=== PATIENT | male | born 1965 | race Caucasian/White ===

== ENCOUNTER 2017-06-02 16:26 | Emergency (ER) | payer BC ==
--- NOTE | 2017-06-02 16:58 | ERNOTE ---
Lower Extremity HPI - Narrative Date of Service: 06/02/17 - General Lower Extremities Pain: leg: right Time Seen by Provider: 06/02/17 16:50 Source: patient, RN notes reviewed, old records Exam Limitations: no limitations - Immun/Allergies/Home Medications Immunizations: IMMUNIZATION HX History of Influenza Vaccine No Hx Pneumococcal Vaccination No Allergies/Adverse Reactions: Allergies Allergy/AdvReac Type Severity Reaction Status Date / Time No Known Allergies Allergy Verified 06/02/17 16:39 Home Medications: HOME MEDICATIONS Phenytoin Sodium Extended [Dilantin] 200 mg PO BID 03/03/13 [Last Taken Unknown] Warfarin Sodium [Jantoven] 5 mg PO DAILY #30 tablet 06/02/17 [Last Taken Unknown ] - History of Present Illness Narrative: 51 year old male ambulatory to the ED for right leg pain and swelling. He had been off work for a month and returned today. He noticed the symptoms were getting worse while he was on his feet. He was seen by his PCP for a routine visit a week ago. He was found to have a shift in his WBC and a small purplish area near his right ankle. This was thought to possibly be vasculitis. He had a DVT several years ago and was treated with warfarin. Method of Injury: Reports: no apparent injury Prior Treament: Reports: recently seen, similar symptoms before Review of Systems - Review of Systems Constitutional: Present: decreased activity level. Absent: fever, chills, malaise EYE: Present: no symptoms reported ENT: Present: no symptoms reported Respiratory: Absent: shortness of breath, cough Cardiology: Present: edema. Absent: chest pain, palpitations, syncope, claudication Gastrointestinal/Abdominal: Absent: nausea, abdominal pain Genitourinary: Present: no symptoms reported Musculoskeletal: Present: muscle pain. Absent: joint pain, joint swelling Skin: Present: lesions, change in color. Absent: rash, lumps Neurological: Absent: headache, dizziness/light-headedness Endocrine: Present: no symptoms reported Hematologic/Lymphatic: Absent: easy bruising, easy bleeding Psych: Present: no symptoms reported - Patient's Past Medical History Patient History - Medical: Seizures Patient History - Cardiac/Respiratory: Aneurysm, Deep Vein Thrombosis Patient History - Cancer: No Hx of Cancer Patient History - Surgical Procedures: Other Patient History - Other: None - Social History Living Situations: home Psych History: No pertinent hx Smoking Status: Never smoker Alcohol Use: none Drug Use: none - Immunizations Hx Pneumococcal Vaccination: No History of Influenza Vaccine: No Physical Exam - Physical Exam General Appearance: Present: wd/wn, alert, no apparent distress Respiratory: Present: no respiratory distress, normal breath sounds, no accessory muscle use, lungs clear Cardiovascular/Chest: Present: regular rate, rhythm, no murmur Extremity Exam: Present: normal range of motion, extremity edema - Right leg from knee down, other - Right lower leg diffusely tender to palpation. Absent: joint swelling Neurological Exam: Present: alert, oriented, normal mood/affect, no motor/ sensory deficits Skin Exam: Present: warm/dry, other - Erythema to right lower leg ED Progress - Results and Orders Patient's Lab Results:: I have reviewed the patient's lab results. - Vital Signs Patient's Vital Signs:: I have reviewed the patient's vital signs. Vital Signs: Vital Signs 06/02/17 16:34 Temperature 37.7 C H Pulse Rate 105 H Respiratory 16 Rate Blood Pressure 154/105 O2 Sat by Pulse 99 Oximetry - CT/Ultrasound CT/Ultrasound Narrative: US Right lower extremity: Extensive deep venous thrombosis extending from the proximal aspect of the superficial femoral vein and into the visualized portions of the posterior tibial and peroneal veins. Findings discussed by telephone with Kimberley Hurtado at 7:26 pm on 06/02/2017. Electronically signed by Germaine Velasquez D.O.. - Progress/Reassessment Chief Complaint: Lower Extremity Pain/ Injury Progress:: Improved Plan - Plan Plan: Lovenox 100 mg given and Coumadin 10 mg, to start coumadin 5mg tomorrow and the next day, then recheck in coumadin clinic the following day Departure Clinical Impression: Deep venous thrombosis - Departure Disposition: Home Follow Up Needed Condition: Stable Instructions: Form - Excuse from Work, School, or Physical Activity, Deep Vein Thrombosis Additional Instructions: Start Coumadin tomorrow at 5 mg daily Recheck in Coumadin clinic on , we will contact you with appointment information tomorrow Referrals: Dilcia Soares FNP [Primary Care Provider] - Prescriptions: Warfarin Sodium [Jantoven] 5 mg PO DAILY #30 tablet
[2017-06-02 17:15] LABS: Hematocrit 44.2 % (42.0-52.0); Hemoglobin 15.7 gm/dL (13.5-18.0); Mean Cell Volume 89.7 fl (78-100); Mean Corpuscular Hemoglobin 31.8 pg (27-31); Mean Corpuscular Hgb Conc 35.5 g/dl (32-36); Mean Platelet Volume 9.2 fl (6.0-9.5); Neutrophil # 11.3 K/mm3 (1.3-6.0); Neutrophil % 81.4 % (42-75.0); Platelet Count 203 K/mm3 (150-450); Red Blood Count 4.93 M/mm3 (4.7-6.0); Red Cell Distribution Width 11.9 % (11.5-14.0); White Blood Count 13.9 K/mm3 (4.0-10.5)
[2017-06-02 17:28] LABS: Albumin * 3.8 gm/dl (3.4-5.0); Anion Gap 14.2 mmol/L (6.8-13.8); BUN/Creatinine Ratio 14.3 (9.0-21.6); Bilirubin, Total 0.4 mg/dL (0.0-1.1); Ca. Corrected For Albumin 8.9 mg/dL (8.4-10.2); Calcium * 9.1 mg/dL (7.9-10.9); Carbon Dioxide 27.9 mmol/L (24-32.6); Potassium 4.1 mmol/L (3.4-4.6); Total Protein 7.6 gm/dL (6.2-8.2)
[2017-06-02] MEDS ORDERED: ENOXAPARIN SODIUM 100 MG/ML SYRG SC ONE ×2 (19:42→19:52)
[2017-06-02 19:52] LABS: Prothrombin Time (Patient) 10.2 Seconds (9.0-11.0)
[2017-06-02 19:57] LABS: INR 1.02 INR (0.90-1.10)
[2017-06-02] MEDS ORDERED: WARFARIN SODIUM 5 MG TABLET PO SCH (20:00)
[2017-06-02 20:08] VITALS: BP 140/88
== END 2017-06-02 20:06 | disposition home or self-care (01) ==
LOC: ER 16:26
DX: I82.4Z1 Acute embolism and thrombosis of unspecified deep veins of right distal lower extremity (principal)